=== PATIENT | male | born 1985 | race Caucasian/White ===

== ENCOUNTER 2022-10-04 10:03 | Emergency (ER) | payer OTHER ==
[2022-10-04 10:27] VITALS: BP 119/76; PULSE 89; RESP 18; TEMP 99.2
--- NOTE | 2022-10-04 11:26 | ED ---
ENT HPI - General Source: patient Mode of arrival: ambulatory <Kei Dickinson - Last Filed: 10/04/22 11:26> <Jimenez Yung - Last Filed: 10/04/22 13:06> - General Chief complaint: ENT Stated complaint: poss ulcer - History of Present Illness Initial comments: 37-year-old male presents to ED with a chief complaint of abdominal pain. Patient states every time he eats has upper abdominal pain for the past 2 days. Denies dysphagia. Tried taking Pepcid with no relief of this. Quicknote performed, verbally signed Kei Dickinson PA-C (Kei Dickinson) Dictation was produced using [employer] dictation software. please excuse any grammatical, word or spelling errors. Chief Complaint: 37-year-old male with odynophagia History of Present Illness: Patient is 37-year-old male presents emergency far for odynophagia. Patient states that he is a sharp burning sensation to his lower chest upper abdomen with oral intake. He states that after he eating solids or liquids he has pain almost immediately. Patient worried that he is having esophagitis. Patient denies any radiation of symptoms. He is asymptomatic at bedside his pain is all exacerbated with oral intake. No fever, chills or night sweats. Pain is nonradiating. The ROS documented in this emergency department record has been reviewed and confirmed by me. Those systems with pertinent positive or negative responses have been documented in the HPI. All other systems are other negative and/or noncontributory. (Jimenez Yung) - Related Data Previous Rx's Medication Instructions Recorded Pantoprazole [Protonix] 40 mg PO DAILY 14 Days #14 tab 10/04/22 Allergies Allergy/AdvReac Type Severity Reaction Status Date / Time No Known Allergies Allergy Verified 10/04/22 10:27 Review of Systems ROS Other: All systems not noted in ROS Statement are negative. <Kei Dickinson - Last Filed: 10/04/22 11:26> ROS Other: All systems not noted in ROS Statement are negative. <Jimenez Yung - Last Filed: 10/04/22 13:06> ROS Statement: Those systems with pertinent positive or pertinent negative responses have been documented in the HPI. Past Medical History Past Medical History: No Reported History History of Any Multi-Drug Resistant Organisms: MRSA Date of last positivie culture/infection: 2005 MDRO Source:: right knee Past Surgical History: No Surgical Hx Reported Past Psychological History: No Psychological Hx Reported <HopefiorellaKei - Last Filed: 10/04/22 11:26> General Exam <Jimenez Yung - Last Filed: 10/04/22 13:06> - General Exam Comments Initial Comments: PHYSICAL EXAM: General Impression: Alert and oriented x3, not in acute distress HEENT: Normocephalic atraumatic, extra-ocular movements intact, pupils equal and reactive to light bilaterally, mucous membranes moist. Cardiovascular: Heart regular rate and rhythm Chest: Able to complete full sentences, no retractions, no tachypnea Abdomen: abdomen soft, non-tender, non-distended, no organomegaly Musculoskeletal: Pulses present and equal in all extremities, no peripheral edema Motor: no focal deficits noted Neurological: CN II-XII grossly intact, no focal motor or sensory deficits noted Skin: Intact with no visualized rashes Psych: Normal affect and mood (Jimenez Yung) Course Vital Signs 10/04/22 10:23 Temperature 99.2 F Pulse Rate 89 Respiratory 18 Rate Blood Pressure 119/76 O2 Sat by Pulse 98 Oximetry Medical Decision Making - Lab Data Result diagrams: 10/04/22 11:40 10/04/22 11:40 <Jimenez Yung - Last Filed: 10/04/22 13:06> - Medical Decision Making Was pt. sent in by a medical professional or institution (Dr. PA, PROFESSOR OF BIOCHEMISTRY, urgent care, hospital, or residential...) When possible be specific @ -[No] Did you speak to anyone other than the patient for history (EMS, parent, family, police, friend...)? What history was obtained from this source @ -[No] Did you review nursing and triage notes (agree or disagree)? Why? @ -[I reviewed and agree with nursing and triage notes] Were old charts reviewed (outside hosp., previous admission, EMS record, old EKG, old radiological studies, urgent care reports/EKG's, residential records)? Report findings @ -[No old charts were reviewed] Differential Diagnosis (chest pain, altered mental status, abdominal pain women, abdominal pain men, vaginal bleeding, musculoskeletal, weakness, fever, dyspnea, syncope, headache, dizziness, GI bleed, back pain, seizure, CVA, palpatations, mental health)? @ -Differential Abdominal Pain Men: Appendicitis, cholecystitis, diverticulosis, ischemic bowel, pancreatitis, hepatitis, UTI, gastroenteritis, AAA, incarcerated hernia, bowel obstruction, constipation, inflammatory bowel, hepatitis, peptic ulcer disease, splenic infarction, perforated viscus, testicular torsion, this is not meant to be an all-inclusive list EKG interpreted by me (3pts min.). @ -My EKG interpretation: Ventricular rate 77, sinus rhythm,. 186, QRS 82, QTC 400. No SD prolongation, no QTC prolongation, no ST or T-wave changes noted. Overall, this EKG is unremarkable X-rays interpreted by me (1pt min.). @ -[None done] CT interpreted by me (1pt min.). @ -[None done] U/S interpreted by me (1pt. min.). @ -[None done] What testing was considered but not performed or refused? (CT, X-rays, U/S, labs)? Why? @ -[None] What meds were considered but not given or refused? Why? @ -[None] Did you discuss the management of the patient with other professionals (professionals i.e. , PA, PROFESSOR OF BIOCHEMISTRY, lab, RT, psych nurse, social work associate, engine house helper, teacher, chief contract officer, case hardener)? Give summary @ -[No] Was smoking cessation discussed for >3mins.? @ -[No] Was critical care preformed (if so, how long)? @ -[No] Were there social determinants of health that impacted care today? How? (Homelessness, low income, unemployed, alcoholism, drug addiction, transportation, low edu. Level, literacy, decrease access to med. care, group home, rehab)? @ -[No] Was there de-escalation of care discussed even if they declined (Discuss DNR or withdrawal of care, Hospice)? DNR status @ -[No] What co-morbidities impacted this encounter? (DM, HTN, Smoking, COPD, CAD, Canc er, CVA, ARF, Chemo, Hep., AIDS, mental health diagnosis, sleep apnea, morbid obesity)? @ -[None] Was patient admitted / discharged? Hospital course, mention meds given and route, prescriptions, significant lab abnormalities, going to OR and other pertinent info. @ -37-year-old male with chief complaint of odynophagia. Clinical presentation consistent with esophagitis versus gastritis versus peptic ulcer disease. Vital signs stable. Laboratory evaluation obtained showing no abnormalities. Patient given GI cocktail with improvement of symptoms. Patient tolerate oral intake. At this point patient does not have any life-threatening processes. He is agreeable for discharge. Patient provided with prescription for Protonix and referral to GI. Return precautions discussed. Patient is agreeable with disposition planning. Undiagnosed new problem with uncertain prognosis? @ -[No] Drug Therapy requiring intensive monitoring for toxicity (Heparin, Nitro, Insulin, Cardizem)? @ -[No] Were any procedures done? @ -[No] Diagnosis/symptom? Acute, or Chronic, or Acute on Chronic? Uncomplicated (without systemic symptoms) or Complicated (systemic symptoms)? @ -1. Odynophagia Side effects of treatment? @ -[No] Exacerbation, Progression, or Severe Exacerbation? @ -[No] Poses a threat to life or bodily function? How? (Chest pain, USA, NC, pneumonia, PE, COPD, DKA, ARF, appy, cholecystitis, CVA, Diverticulitis, Homicidal, Suicidal, threat to staff... and all critical care pts) @ -[No] (Jimenez Yung) - Lab Data Lab Results 10/04/22 10/04/22 Range/Units 11:40 11:40 WBC 4.6 (3.8-10.6) k/uL RBC 4.51 (4.30-5.90) m/uL Hgb 14.0 (13.0-17.5) gm/dL Hct 40.1 (39.0-53.0) % MCV 88.8 (80.0-100.0) fL MCH 31.1 (25.0-35.0) pg MCHC 35.0 (31.0-37.0) g/dL RDW 12.4 (11.5-15.5) % Plt Count 154 (150-450) k/uL MPV 7.7 Neutrophils % 58 % Lymphocytes % 31 % Monocytes % 7 % Eosinophils % 1 % Basophils % 1 % Neutrophils # 2.6 (1.3-7.7) k/uL Lymphocytes # 1.4 (1.0-4.8) k/uL Monocytes # 0.3 (0-1.0) k/uL Eosinophils # 0.1 (0-0.7) k/uL Basophils # 0.0 (0-0.2) k/uL Sodium 141 (137-145) mmol/L Potassium 3.8 (3.5-5.1) mmol/L Chloride 104 (98-107) mmol/L Carbon Dioxide 28 (22-30) mmol/L Anion Gap 9 mmol/L BUN 8 L (9-20) mg/dL Creatinine 0.72 (0.66-1.25) mg/dL Est GFR (CKD-EPI)AfAm >90 (>60 ml/min/1.73 sqM) Est GFR (CKD-EPI)NonAf >90 (>60 ml/min/1.73 sqM) Glucose 92 (74-99) mg/dL Calcium 8.8 (8.4-10.2) mg/dL Total Bilirubin 0.8 (0.2-1.3) mg/dL AST 23 (17-59) U/L ALT 27 (4-49) U/L Alkaline Phosphatase 67 (38-126) U/L Total Protein 6.8 (6.3-8.2) g/dL Albumin 4.3 (3.5-5.0) g/dL Amylase 48 (30-110) U/L Lipase 86 (23-300) U/L Disposition <Kei Dickinson - Last Filed: 10/04/22 11:26> Is patient prescribed a controlled substance at d/c from ED?: No Time of Disposition: 13:06 <Jimenez Yung - Last Filed: 10/04/22 13:06> Clinical Impression: Odynophagia Disposition: HOME SELF-CARE Condition: Fair Instructions (If sedation given, give patient instructions): Gastritis (ED) Prescriptions: Pantoprazole [Protonix] 40 mg PO DAILY 14 Days #14 tab Referrals: Jessie Knapp MD [STAFF PHYSICIAN] - 1-2 days
[2022-10-04 12:03] LABS: Basophils % (A) 1 %; Eosinophils # (A) 0.1 k/uL (0-0.7); Eosinophils % (A) 1 %; HCT 40.1 % (39.0-53.0); Lymphocytes # (A) 1.4 k/uL (1.0-4.8); Lymphocytes % (A) 31 %; MCH 31.1 pg (25.0-35.0); MCV 88.8 fL (80.0-100.0); Mean Platelet Volume 7.7; Monocytes # (A) 0.3 k/uL (0-1.0); Monocytes % (A) 7 %; Neutrophils # (A) 2.6 k/uL (1.3-7.7); Neutrophils % (A) 58 %; Platelet Count 154 k/uL (150-450); RBC 4.51 m/uL (4.30-5.90); RDW 12.4 % (11.5-15.5); WBC 4.6 k/uL (3.8-10.6)
[2022-10-04 12:10] LABS: ALT 27 U/L (4-49); AST 23 U/L (17-59); African American GFR (CKD) >90 (>60 ml/min/1.73 sqM); Albumin 4.3 g/dL (3.5-5.0); Alkaline Phosphatase 67 U/L (38-126); Amylase 48 U/L (30-110); Anion Gap 9 mmol/L; Blood Urea Nitrogen 8 mg/dL (9-20); Calcium 8.8 mg/dL (8.4-10.2); Carbon Dioxide 28 mmol/L (22-30); Chloride 104 mmol/L (98-107); Glucose 92 mg/dL (74-99); Lipase 86 U/L (23-300); Non-African American GFR(CKD) >90 (>60 ml/min/1.73 sqM); Potassium 3.8 mmol/L (3.5-5.1); Sodium 141 mmol/L (137-145); Total Bilirubin 0.8 mg/dL (0.2-1.3); Total Protein 6.8 g/dL (6.3-8.2)
[2022-10-04] MEDS ORDERED: MAG HYDROX/AL HYDROX/SIMETH 30 ML, HYOSCYAMINE ELIXIR 10 ML, LIDOCAINE 2% GLYDO JELLY 1... PO STA ×3 (12:21)
== END 2022-10-04 13:21 | disposition home or self-care (01) ==
LOC: EC 10:03
DX: R13.10 Dysphagia, unspecified (principal)
CPT/HCPCS: 36415; 80053; 82150; 83690; 85025; 93005; 99283